=== PATIENT | male | born 1995 | race Caucasian/White ===

== ENCOUNTER 2022-08-30 13:49 | Observation (INO) | payer MEDICAID, SELFPAY ==
[2022-08-30 13:50] VITALS: BP 156/106; PULSE 88; RESP 18; TEMP 36.3; O2SAT 100; BMI 40.6
[2022-08-30 14:16] LABS: Absolute Lymphocyte Count 3.37 X10^3/uL (0.83-4.51); Absolute Neutrophil Count 8.9 X10^3/uL (2.0-7.7); Basophil# 0.04 X10^3/uL; Basophil% 0.3 % (0-1); Eosinophil# 0.04 X10^3/uL; Eosinophils% 0.3 % (0-5); Hematocrit 48.9 % (40-54); Hemoglobin 16.2 g/dL (13.0-16.5); Lymphocyte # 3.37 X10^3/ul (0.83-4.51); Lymphocyte % 25.4 % (19-41); Mean Corp Hgb Conc 33.1 g/dL (32-36); Mean Corpuscular Hgb 29.6 pg (27.0-32.0); Mean Corpuscular Volume 89.2 fL (80-94); Mean Platelet Vol. 9.3 fl (6.2-12.0); Monocyte# 0.83 X10^3/uL; Monocyte% 6.3 % (0-10); NRBC Flagged by Analyzer 0 % (0-5); Neutrophil # 8.92 X10^3/uL (2.7-7.7); Neutrophil % 67.2 % (47-70); Platelet Count 336 K/mm3 (150-450); RBC Distribution Width CV 11.8 % (11.6-14.6); RBC Distribution Width SD 37.9 fl (35.1-43.9); Red Blood Count 5.48 M/mm3 (4.6-6.2); White Blood Count 13.3 K/mm3 (4.4-11.0)
[2022-08-30 14:29] LABS: Anion Gap 7 (5-15); BUN 15 mg/dL (7-18); BUN/Creat Ratio 11.5 RATIO (10-20); Chloride 105 mmol/L (98-107); Creatinine, Serum 1.31 mg/dL (0.70-1.30); EST Glomerular Filtration Rate 69 mL/min (>60); Est Glom Filt Rate - Afr Amer 83 mL/min (>60); Estimated Creatinine Clearance 92.15 ml/min; Glucose 108 mg/dL (74-106); Potassium 4.1 mmol/L (3.5-5.1); Sodium Level 141 mmol/L (136-145)
--- NOTE | 2022-08-30 15:08 | CT_ITS ---
STUDY: CT ABDOMEN AND PELVIS WITHOUT CONTRAST REASON FOR EXAM: Male, 26 years old. Left flank pain RADIATION DOSAGE (If Supplied By Facility): CTDIvol = ( 24.05 ) mGy, DLP = ( 1375.76 ) mGycm TECHNIQUE: Transaxial images were obtained from the dome of the diaphragm to the symphysis pubis without oral contrast, and without intravenous contrast. Sagittal and coronal images were reconstructed. Individualized dose optimization techniques were used for this CT. COMPARISON: None. FINDINGS: The visualized lung bases are unremarkable. The visualized portions of the heart are within normal limits. Normal liver. Normal gallbladder and extrahepatic biliary system. Normal spleen. Normal pancreas. Normal bilateral adrenal glands. Normal right kidney. Mild degree of left hydronephrosis and proximal left hydroureter due to a 4 mm calculus in the midportion of the left ureter. There is a small hiatal hernia. Normal small intestine. Normal colon. The appendix is visualized and appears normal. Normal abdominal aorta. Normal inferior vena cava. Normal retroperitoneum. Normal urinary bladder. Normal abdominal wall. Normal osseous structures. CT/Abdomen/Pelvis without Cont IMPRESSION: 4 mm calculus in the midportion of the left ureter causing mild degree of left hydronephrosis and proximal left hydroureter. Small sliding hiatal hernia. Electronically Signed: Mikael Verduzco MD at 15:34 EST ,
--- NOTE | 2022-08-30 15:12 | EX.ED.DYSGE1 ---
HPI History of Present Illness Chief Complaint: Flank Pain Informant: patient Narrative Narrative: Patient is a 26-year-old male who denies any past medical history presenting with worsening left flank pain. He started having this left flank pain 1 week ago however it was intermittent and had been gone for the past 3 to 4 days however at 8 AM this morning he woke up with this pain. States it is in his left back and radiates around to his left lower quadrant into his left testicle. Initially thought it was a gas bubble. He tried taking Gas-X with no relief. He has associated nausea and vomiting which he attributes secondary to his pain. Denies any urinary symptoms. Denies any changes bowel habits. Denies any fever or chills. Does feel short of breath attributes that to his pain. Denies any history of kidney stones. Never had any like this before. No other complaints at this time. PFSH PFSH Medical History Acute bronchitis Non-smoker Home Medications cetirizine 10 mg tablet (Zyrtec) 10 mg PO DAILY 08/30/22 [History Last Taken Unknown] Allergy/AdvReac Type Severity Reaction Status Date / Time No Known Allergies Allergy Verified 08/30/22 13:49 Surgical History History of tonsillectomy Social History Smoking Status: Never smoker alcohol intake: current alcohol intake frequency: holidays/special occasions only ROS ROS ED Constitutional Constitutional ED: Denies chills or fever(s) Eyes Eyes: Denies change in vision ENT ENT ED: Denies rhinorrhea or sore throat Cardiovascular Cardiovascular: Denies chest pain or palpitations Respiratory/Chest Respiratory/Chest: Reports dyspnea; Denies cough Gastrointestinal Gastrointestinal: Reports abdominal pain, nausea and vomiting; Denies constipation, diarrhea or melena Genitourinary Genitourinary ED: Denies dysuria, hematuria or urinary frequency Musculoskeletal Musculoskeletal: Reports back pain; Denies arthralgias or neck pain Integumentary Denies rash Neurologic Neurologic: Denies headache(s) or weakness Psychiatric Psychiatric: Denies anxiety or depression Hematologic/Lymphatic Hematologic/Lymphatic: Denies easy bleeding EXAM Physical Exam Const Vital Signs: 08/30/22 13:50 08/30/22 15:02 08/30/22 17:04 Temperature 97.4 F L Temperature Source Temporal Pulse Rate 88 75 Respiratory Rate 18 15 Respiratory Effort Normal Respiratory Pattern Normal Blood Pressure 156/106 H 118/66 Blood Pressure Mean 122 83 Pulse Ox 100 97 Oxygen Delivery Method Room Air Room Air Positive well nourished and well developed Constitutional Narrative: Uncomfortable appearing General Appearance ED: well developed HEENT Reports moist mucous membranes Eyes PERRL and EOMs intact bilaterally Neck supple Chest Wall inspection of chest normal and palpation of chest normal Resp normal respiratory effort and clear to auscultation bilaterally Cardio regular rate, regular rhythm and no murmurs GI normal to inspection, nondistended, normoactive bowel sounds Palpation: tender LLQ; Negative for guarding Back/Spine General Back: CVA tenderness left Extremity normal to inspection Neuro oriented x3 Neuro Narrative: No focal deficits appreciated Sensorium / Orientation: alert Psych mental status grossly normal Skin no rashes or lesions noted MDM MDM MDM Narrative Medical decision making narrative: Patient is evaluated for worsening left flank pain. Physical exam and history is concerning for obstructing ureterolithiasis. Patient is given IV morphine, Zofran and IV fluids. Patient does have a mild leukocytosis of 13.3 and a mild elevation of his creatinine of 1.31. Do not have a baseline to compare to. I waiting on the urinalysis as well as CT. Urinalysis largely normal does show 5 ketones. No signs of infection. There is red blood cells present. CT abdomen pelvis shows 4 mm calculus in the midportion of the left ureter causing mild degree of left hydronephrosis and proximal left hydroureter. Patient received multiple doses of IV pain medication but continues to have significant discomfort. In addition he has a small bump in his creatinine. Discussed with urology and patient will be admitted. Patient agreeable this plan of care. Patient is given a second liter of IV fluid in the emergency room. Lab Data Labs: Laboratory Results - last 24 hr 08/30/22 08/30/22 08/30/22 14:10 14:10 18:04 WBC 13.3 H RBC 5.48 Hgb 16.2 Hct 48.9 MCV 89.2 MCH 29.6 MCHC 33.1 RDW Std Deviation 37.9 RDW Coeff of Catrina 11.8 Plt Count 336 MPV 9.3 Immature Gran % (Auto) 0.500 Neut % (Auto) 67.2 Lymph % (Auto) 25.4 [place] % (Auto) 6.3 Eos % (Auto) 0.3 Baso % (Auto) 0.3 Absolute Neuts (auto) 8.9 H Absolute Lymphs (auto) 3.37 Nucleated RBC % 0 Sodium 141 Potassium 4.1 Chloride 105 Carbon Dioxide 29.0 Anion Gap 7 BUN 15 Creatinine 1.31 H Estim Creat Clear Calc 92.15 Est GFR (MDRD) Af Amer 83 Est GFR (MDRD) Non-Af 69 BUN/Creatinine Ratio 11.5 Glucose 108 H Calcium 10.0 Urine Color Yellow Urine Clarity Clear Urine pH 5.0 Ur Specific [place] 1.025 Urine Protein 30 H Urine Glucose (UA) Normal Urine Ketones 5 H Urine Occult Blood 250 H Urine Nitrite Negative Urine Bilirubin Negative Urine Urobilinogen Normal Ur Leukocyte Esterase Negative Urine RBC 10-25 SEEN Urine WBC 0-5 SEEN Ur Squamous Epith Cells 0-5 SEEN Calcium Oxalate Crystal RARE Urine Bacteria 0 SEEN Urine Mucus RARE Radiography Diagnostic Testing: Clinical Impression(s) from Imaging Studies Abdomen/Pelvis CT 08/30/22 15:08 IMPRESSION: 4 mm calculus in the midportion of the left ureter causing mild degree of left hydronephrosis and proximal left hydroureter. Small sliding hiatal hernia. Electronically Signed: Mikael Verduzco MD at 15:34 EST , Discharge Plan Dx/Rx/DC Orders Clinical Impression: Renal colic on left side, Ureterolithiasis, Elevated serum creatinine Disposition Disposition: Acute Care Hospital [facility] [place] Discharge Date/Time: 08/30/22 20:02
[2022-08-30] MEDS: 0.9% Normal Saline 1,000 ML 999 ML IV ×2 (15:33→19:08)
[2022-08-30] MEDS: Ondansetron 4 MG/2 ML Vial IV (15:34)
[2022-08-30] MEDS: morphine 8 MG/ML Syringe IV (15:35)
[2022-08-30] MEDS: HYDROmorphone 1 MG/ML Syringe IV ×2 (16:05→17:01)
[2022-08-30 17:04] VITALS: BP 118/66; PULSE 75; RESP 15; O2SAT 97
[2022-08-30 18:12] LABS: Bacteria 0 SEEN /hpf (None Seen)
[2022-08-30 18:20] LABS: Color, Urine Yellow (Yellow); Glucose, Dipstick Normal (Normal); Ketone-Dipstick 5 mg/dl (Negative); Leukocyte Esterase-Dipstick Negative /ul (Negative); Nitrite-Dipstick Negative (Negative); Occult Blood-Urine 250 /ul (Negative); Protein-Dipstick 30 mg/dl (Negative); Specific Gravity, Urine 1.025 (1.002-1.030); Urine Bilirubin Dipstick Negative (Negative); Urine Clarity Clear (Clear); Urine Urobilinogen Normal (Normal)
[2022-08-30 18:30] LABS: Calcium Oxalate Crystals Ur RARE /hpf (<or=2+); Mucous, Urine RARE /hpf (<or=2+); Red Blood Cells-Urine 10-25 SEEN /hpf (0-5); Squamous Epithelial Cells - UA 0-5 SEEN /hpf (0-5); White Blood Cells 0-5 SEEN /hpf (0-5)
[2022-08-30] MEDS: Ketorolac 15 MG/ML Vial IV (19:09)
[2022-08-30 19:13] VITALS: BP 138/64; PULSE 65; RESP 15; TEMP 36.8; O2SAT 98
[2022-08-30 20:02] VITALS: BMI 36.6
[2022-08-30 20:14] VITALS: BP 148/78; PULSE 102; RESP 18; TEMP 36.7; O2SAT 98
[2022-08-30] MEDS: 0.9% Normal Saline 1,000 ML 75 ML IV (21:13)
[2022-08-30] MEDS: 0.9% Saline Lock 10 ML Syringe IV (21:13)
[2022-08-30] MEDS: Morphine 2 MG/ML Syringe IV (21:22)
[2022-08-31 02:30] VITALS: BP 126/81; PULSE 84; RESP 18; TEMP 36.8; O2SAT 97
[2022-08-31] MEDS: Morphine 2 MG/ML Syringe IV ×2 (03:19→08:19)
[2022-08-31] MEDS: Ketorolac 15 MG/ML Vial IV ×3 (06:23→11:58)
--- NOTE | 2022-08-31 07:42 | HP.PCM_ITS ---
HPI - General General Date of Admission: 08/30/22 HPI Narrative BEATRIZ ALCARAZ, is a 26 M who presents With a stone in the mid left ureter about 4 mm in size severe intractable pain patient was admitted for pain control. We will see if he can pass a stone that if he does not pass a stone plan for surgery tomorrow with shockwave lithotripsy. PFSH Medical History Acute bronchitis Non-smoker Home Medications cetirizine 10 mg tablet (Zyrtec) 10 mg PO DAILY 08/30/22 [History Last Taken Unknown] Allergy/AdvReac Type Severity Reaction Status Date / Time No Known Allergies Allergy Verified 08/30/22 13:49 Surgical History History of tonsillectomy Social History Smoking Status: Never smoker alcohol intake: current alcohol intake frequency: holidays/special occasions only Vital Signs Vital Signs Vital Signs: 08/30/22 13:50 08/30/22 15:02 08/30/22 17:04 Temperature 97.4 F L Temperature Source Temporal Pulse Rate 88 75 Respiratory Rate 18 15 Respiratory Effort Normal Respiratory Pattern Normal Blood Pressure 156/106 H 118/66 Blood Pressure Mean 122 83 Blood Pressure Source Blood Pressure Position Blood Pressure Location Pulse Ox 100 97 Oxygen Delivery Method Room Air Room Air Oxygen Flow Rate (L/min) 08/30/22 19:13 08/30/22 19:17 08/30/22 20:14 Temperature 98.2 F 98.1 F Temperature Source Temporal Oral Pulse Rate 65 102 H Respiratory Rate 15 18 Respiratory Effort Respiratory Pattern Blood Pressure 138/64 H 148/78 H Blood Pressure Mean 88 101 Blood Pressure Source Monitor Blood Pressure Position Sitting Blood Pressure Location Right Arm Pulse Ox 98 98 Oxygen Delivery Method Nasal Cannula Room Air Nasal Cannula Oxygen Flow Rate (L/min) 2 1 08/31/22 02:30 Temperature 98.3 F Temperature Source Oral Pulse Rate 84 Respiratory Rate 18 Respiratory Effort Respiratory Pattern Blood Pressure 126/81 H Blood Pressure Mean 96 Blood Pressure Source Monitor Blood Pressure Position Semi-Fowlers Blood Pressure Location Right Arm Pulse Ox 97 Oxygen Delivery Method Room Air Oxygen Flow Rate (L/min) Weight Weight: 122.6 kg Body Mass Index (BMI) 36.6 Results Lab / Micro Data Result Diagrams: 08/30/22 14:10 08/30/22 14:10 Labs: Laboratory Results - last 24 hr 08/30/22 14:10: WBC 13.3 H, RBC 5.48, Hgb 16.2, Hct 48.9, MCV 89.2, MCH 29.6, MCHC 33.1, RDW Std Deviation 37.9, RDW Coeff of Catrina 11.8, Plt Count 336, MPV 9.3, Immature Gran % (Auto) 0.500, Neut % (Auto) 67.2, Lymph % (Auto) 25.4, [place] % (Auto) 6.3, Eos % (Auto) 0.3, Baso % (Auto) 0.3, Absolute Neuts (auto) 8.9 H, Absolute Lymphs (auto) 3.37, Nucleated RBC % 0 08/30/22 14:10: Sodium 141, Potassium 4.1, Chloride 105, Carbon Dioxide 29.0, Anion Gap 7, BUN 15, Creatinine 1.31 H, Estim Creat Clear Calc 92.15, Est GFR (MDRD) Af Amer 83, Est GFR (MDRD) Non-Af 69, BUN/Creatinine Ratio 11.5, Glucose 108 H, Calcium 10.0 08/30/22 18:04: Urine Color Yellow, Urine Clarity Clear, Urine pH 5.0, Ur Specific [place] 1.025, Urine Protein 30 H, Urine Glucose (UA) Normal, Urine Ketones 5 H, Urine Occult Blood 250 H, Urine Nitrite Negative, Urine Bilirubin Negative, Urine Urobilinogen Normal, Ur Leukocyte Esterase Negative, Urine RBC 10-25 SEEN, Urine WBC 0-5 SEEN, Ur Squamous Epith Cells 0-5 SEEN, Calcium Oxalate Crystal RARE, Urine Bacteria 0 SEEN, Urine Mucus RARE Radiology Impression Abdomen/Pelvis CT 08/30/22 15:08 IMPRESSION: 4 mm calculus in the midportion of the left ureter causing mild degree of left hydronephrosis and proximal left hydroureter. Small sliding hiatal hernia. Electronically Signed: Mikael Verduzco MD at 15:34 EST , Assessment & Plan Assessment/Plan (1) Ureterolithiasis: PLAN: Admitted for pain control, n.p.o. at midnight, plan for shockwave litho tripsy tomorrow if fails to pass a stone.
[2022-08-31] MEDS: 0.9% Normal Saline 1,000 ML 75 ML IV (08:19)
[2022-08-31] MEDS: 0.9% Saline Lock 10 ML Syringe IV ×3 (08:19→11:58)
[2022-08-31 08:23] VITALS: BP 113/71; PULSE 70; RESP 14; TEMP 36.8; O2SAT 93
[2022-08-31 15:00] VITALS: BP 126/74; PULSE 65; RESP 14; TEMP 36.8; O2SAT 99
--- NOTE | 2022-08-31 15:20 | RAD_ITS ---
INDICATION: stone EXAMINATION/TECHNIQUE: X-RAY - XR Abdomen 1 View COMPARISON: None FINDINGS: BOWEL GAS PATTERN: Non-obstructive. No bowel or stomach distention. FREE AIR: Not assessed on a single supine view. ORGANOMEGALY: Not seen. CALCIFICATIONS: No abnormal calcifications observed. LOWER CHEST: No acute pathology. BONES AND SOFT TISSUES: No acute pathology. RAD/Abdomen Single View IMPRESSION: No abnormal calcifications seen. Electronically Signed: Samuel Salinas MD at 17:21 EST ,
== END 2022-08-31 18:26 | disposition home or self-care (01) ==
LOC: ED 16:45 → MS3 19:05
PROVIDERS: Admitting Provider Urology; Emergency Provider Emergency Medicine; Visit Provider Urology
DX: N13.2 Hydronephrosis with renal and ureteral calculous obstruction (principal); R79.89 Other specified abnormal findings of blood chemistry
CPT/HCPCS: 74018; 74176; 80048; 81001; 85025; 96361; 96374; 96375; 96376; 97802; 99218; 99221; 99284; J7030; A4216; G0378; J2405

== ENCOUNTER 2022-09-01 02:57 | Observation (INO) | payer MEDICAID, SELFPAY ==
[2022-09-01] VITALS (14 sets, daily range): BP systolic 115–142; BP diastolic 55–82; PULSE 66–87; RESP 16–22; TEMP 35.8–37.1; O2SAT 89–100; BMI 41.7; BMI 40.6
--- NOTE | 2022-09-01 03:05 | EX.ED.DYSGE1 ---
HPI History of Present Illness Chief Complaint: Flank Pain Narrative Narrative: 26-year-old male here for left-sided flank pain. Patient states that started approximately 10 PM has been constant severe radiating to the groin without alleviating factors. States it reminds him of his kidney stone he was diagnosed with yesterday. States while here yesterday he passed a kidney stone and had an x-ray done afterwards which showed no evidence of residual nephrolithiasis. Denies any allergies, chest pain, fever, vomiting, diarrhea or changes in bladder habits. PFSH PFSH Medical History Acute bronchitis Non-smoker Medical History no medical history no medical history (History of nephrolithiasis) Home Medications cetirizine 10 mg tablet (Zyrtec) 10 mg PO DAILY 08/30/22 [History Last Taken Unknown] Allergy/AdvReac Type Severity Reaction Status Date / Time No Known Allergies Allergy Verified 08/30/22 13:49 Surgical History History of tonsillectomy Social History Smoking Status: Never smoker alcohol intake: current alcohol intake frequency: holidays/special occasions only ROS ROS ED ROS Narrative Constitutional: Denies fever HEENT: Denies sore throat Neck: Denies neck pain Cardiovascular: Denies chest pain, syncope Respiratory: Denies shortness of breath GI: Denies nausea vomiting or abdominal pain : Left flank pain Musculoskeletal: Denies muscle or joint pain Neurologic: Denies numbness weakness or loss of sensation Skin denies rash EXAM Physical Exam Narrative Exam Narrative: Nursing triage notes reviewed, Vital signs reviewed Constitutional: please see mdm HENT: MMM Eyes: Pupils equal round and reactive to light, Extraocular muscles intact Neck: No stridor, no JVD, full neck ROM Lungs: Clear to auscultation, No wheezing or rales. No increased work of breathing, no conversational dyspnea, no accessory muscle use, no nasal flaring. No respiratory distress noted Heart: Regular rate and rhythm, No murmurs, No rubs and No gallops, 2+ distal pulses (radial, femoral, posterior tibial) in all extremities Abdomen: Soft, there is no tenderness, rigidity, rebound or guarding, no obvious peritoneal signs, no palpable pulsatile abdominal masses, no auscultated abdominal bruit : Left CVAT Extremities: No edema Neuro: No focal neurological deficits, cranial nerves II through XII intact, 5/5 strength in all extremities. Intact sensation to light touch in all extremities, 2+ reflexes bilateral patella dens. Normal gait. No ataxia. Skin: No rash or lesions noted Const Vital Signs: 09/01/22 02:58 Temperature 96.5 F L Temperature Source Temporal Pulse Rate 75 Respiratory Rate 22 H Blood Pressure 122/80 H Blood Pressure Mean 94 Pulse Ox 99 Oxygen Delivery Method Room Air MDM MDM MDM Narrative Medical decision making narrative: 26-year-old male here for left flank pain in the setting of recent kidney stone. Patient was hemodynamically stable, afebrile, nontoxic-appearing. Is tearful and appeared in pain. Gave morphine, fluids made pt n.p.o. Pain to CT scan to rule out residual nephrolithiasis, hydronephrosis obtain a urine sample to rule out UTI. Also obtain additional labs to rule out pancreatitis, hepatobiliary pathology, systemic inflammation, severe acute kidney injury or electrolyte abnormalities. Labs images were remarkable for left nephrolithiasis, hydronephrosis. Gave ceftriaxone for antimicrobial prophylaxis given the patient's elevated white blood cell count. Discussed the case with urology Dr. Wilson who recommended inpatient admission. Lab Data Attestation: I reviewed the patient's lab results. Lab results narrative: CBC with uptrending leukocytosis, no anemia, no thrombocytopenia BMP with no significant electrolyte abnormalities, anion gap or acute kidney injury LFTs without evidence of significant hepatobiliary pathology Lipase unremarkable for evidence of pancreatitis Labs: Laboratory Results - last 24 hr 09/01/22 09/01/22 03:25 03:25 WBC 14.7 H RBC 4.85 Hgb 14.2 Hct 42.2 MCV 87.0 MCH 29.3 MCHC 33.6 RDW Std Deviation 37.2 RDW Coeff of Catrina 11.7 Plt Count 270 MPV 9.2 Immature Gran % (Auto) 0.400 Neut % (Auto) 77.0 H Lymph % (Auto) 15.0 L [place] % (Auto) 7.1 Eos % (Auto) 0.4 Baso % (Auto) 0.1 Absolute Neuts (auto) 11.3 H Absolute Lymphs (auto) 2.21 Nucleated RBC % 0 Sodium 140 Potassium 3.9 Chloride 107 Carbon Dioxide 23.0 Anion Gap 10 BUN 15 Creatinine 1.16 Estim Creat Clear Calc 104.06 Est GFR (MDRD) Af Amer 96 Est GFR (MDRD) Non-Af 79 BUN/Creatinine Ratio 12.9 Glucose 119 H Calcium 9.1 Total Bilirubin 0.70 AST 15 ALT 40 Alkaline Phosphatase 74 Total Protein 6.9 Albumin 3.6 Globulin 3.3 Albumin/Globulin Ratio 1.1 Lipase 97 Radiography Diagnostic Testing: Clinical Impression(s) from Imaging Studies Abdomen/Pelvis CT 09/01/22 03:07 IMPRESSION: 5 mm left ureteral calculus with associated mild upstream dilatation of the left collecting system. Left renal enlargement and perinephric stranding are likely postobstructive findings. Electronically Signed: Leander Lux MD at 3:59 EST , Treatment and Re-Evaluation Narrative: Patient was admitted to the floor in stable condition. Discharge Plan Disposition Disposition: Acute Care Hospital [facility] Discharge Date/Time: 09/01/22 06:23
--- NOTE | 2022-09-01 03:07 | CT_ITS ---
EXAM: CT ABDOMEN AND PELVIS WITHOUT INTRAVENOUS CONTRAST CLINICAL INDICATION: Left-sided flank pain rule out nephrolithiasis TECHNIQUE: Helically acquired images were obtained of the abdomen and pelvis without intravenous contrast. CTDIvol = ( 23.57 ) mGy, DLP = ( 1331.10 ) mGycm This CT exam was performed using one or more of the following dose reduction techniques: automated exposure control, adjustment of the mA and/or kV according to patient size, and/or use of iterative reconstruction technique. This report was created using [employer] report [employer] technology. COMPARISON: None. FINDINGS: LOWER THORAX: Unremarkable. Lung bases are clear. No cardiomegaly. No significant pericardial effusion. ABDOMEN: LIVER: Unremarkable. Homogeneous. GALLBLADDER AND BILE DUCTS: Unremarkable. No calcified gallstones. No gallbladder distention or wall edema. No intra- or extrahepatic biliary ductal dilation. PANCREAS: Unremarkable. No focal cystic mass. SPLEEN: Unremarkable. Normal size without focal cystic or solid mass. ADRENALS: Unremarkable. No nodules. KIDNEYS AND URETERS: 5 mm left ureteral calculus with associated mild upstream dilatation of the left collecting system. Left renal enlargement and perinephric stranding are likely postobstructive findings. Normal renal size and position. STOMACH AND BOWEL: Distal colonic diverticulosis but no acute diverticulitis. No colitis. No bowel obstruction. PELVIS: APPENDIX: No evidence of acute appendicitis. BLADDER: Unremarkable. REPRODUCTIVE: Unremarkable as visualized. No mass. ABDOMEN and PELVIS: INTRAPERITONEAL SPACE: Unremarkable. No ascites or other fluid collection. No free air. BONES/JOINTS: Unremarkable. No suspicious lytic or blastic abnormality. SOFT TISSUES: Unremarkable. No discrete abdominal or pelvic wall hernia. VASCULATURE: Unremarkable. Abdominal aorta is non-dilated. LYMPH NODES: Unremarkable. No enlarged lymph nodes. CT/Abdomen/Pelvis without Cont IMPRESSION: 5 mm left ureteral calculus with associated mild upstream dilatation of the left collecting system. Left renal enlargement and perinephric stranding are likely postobstructive findings. Electronically Signed: Leander Lux MD at 3:59 EST ,
[2022-09-01 03:30] LABS: Absolute Lymphocyte Count 2.21 X10^3/uL (0.83-4.51); Absolute Neutrophil Count 11.3 X10^3/uL (2.0-7.7); Basophil# 0.02 X10^3/uL; Basophil% 0.1 % (0-1); Eosinophil# 0.06 X10^3/uL; Eosinophils% 0.4 % (0-5); Hematocrit 42.2 % (40-54); Hemoglobin 14.2 g/dL (13.0-16.5); Lymphocyte # 2.21 X10^3/ul (0.83-4.51); Mean Corp Hgb Conc 33.6 g/dL (32-36); Mean Corpuscular Hgb 29.3 pg (27.0-32.0); Mean Platelet Vol. 9.2 fl (6.2-12.0); Monocyte# 1.05 X10^3/uL; Monocyte% 7.1 % (0-10); NRBC Flagged by Analyzer 0 % (0-5); Neutrophil # 11.34 X10^3/uL (2.7-7.7); Platelet Count 270 K/mm3 (150-450); RBC Distribution Width CV 11.7 % (11.6-14.6); RBC Distribution Width SD 37.2 fl (35.1-43.9); Red Blood Count 4.85 M/mm3 (4.6-6.2); White Blood Count 14.7 K/mm3 (4.4-11.0)
[2022-09-01] MEDS: Morphine 4 MG/ML Syringe IV (03:52)
[2022-09-01] MEDS: Ketorolac 15 MG/ML Vial IV (03:52)
[2022-09-01] MEDS: 0.9% Normal Saline 1,000 ML 1000 ML IV (03:52)
[2022-09-01] MEDS: Ondansetron 4 MG/2 ML Vial IV ×2 (03:52→09:56)
[2022-09-01 03:55] LABS: ALB/GLOB Ratio 1.1 RATIO (0.9-2.4); AST(SGOT) 15 U/L (15-37); Alanine Aminotransfer ALT/SGPT 40 U/L (16-61); Albumin, Serum 3.6 g/dL (3.2-5.0); Alkaline Phosphatase 74 U/L (45-117); Anion Gap 10 (5-15); BUN 15 mg/dL (7-18); BUN/Creat Ratio 12.9 RATIO (10-20); Calcium,Total 9.1 mg/dL (8.5-10.1); Chloride 107 mmol/L (98-107); Creatinine, Serum 1.16 mg/dL (0.70-1.30); EST Glomerular Filtration Rate 79 mL/min (>60); Est Glom Filt Rate - Afr Amer 96 mL/min (>60); Estimated Creatinine Clearance 104.06 ml/min; Globulin 3.3 g/dL (2.2-4.2); Glucose 119 mg/dL (74-106); Lipase 97 U/L (73-393); Potassium 3.9 mmol/L (3.5-5.1); Protein, Total 6.9 g/dL (6.4-8.2); Sodium Level 140 mmol/L (136-145)
[2022-09-01] MEDS: HYDROmorphone 1 MG/ML Syringe IV ×3 (05:24→21:00)
[2022-09-01] MEDS: Ceftriaxone 1 GM/50 ML BAG IV (06:14)
[2022-09-01 06:29] LABS: Mucous, Urine 0 SEEN /hpf (<or=2+); Squamous Epithelial Cells - UA 0 SEEN /hpf (0-5)
[2022-09-01 06:30] LABS: Color, Urine Yellow (Yellow); Glucose, Dipstick Normal (Normal); Ketone-Dipstick 15 mg/dl (Negative); Leukocyte Esterase-Dipstick 25 /ul (Negative); Nitrite-Dipstick Negative (Negative); Occult Blood-Urine 250 /ul (Negative); Protein-Dipstick Negative (Negative); Specific Gravity, Urine 1.015 (1.002-1.030); Urine Bilirubin Dipstick Negative (Negative); Urine Clarity Clear (Clear); Urine Urobilinogen Normal (Normal)
[2022-09-01 06:37] LABS: Bacteria RARE /hpf (None Seen); Red Blood Cells-Urine 5-10 SEEN /hpf (0-5); White Blood Cells 0-5 SEEN /hpf (0-5)
--- NOTE | 2022-09-01 07:28 | HP.PCM_ITS ---
HPI - General General Date of Admission: 09/01/22 Chief Complaint: kidney stone HPI Narrative BEATRIZ ALCARAZ, is a 26 M who presents to ER with a 5mm stone in proximal ureter, he was discharge yesturday since it was reported the stone passed and KUB no stone seen but he presented later in the evening with severe pain and ct scan confirms stone. plan to take to surgery for ESWL and stent today. PFSH Medical History Acute bronchitis Non-smoker Medical History no medical history Home Medications cetirizine 10 mg tablet (Zyrtec) 10 mg PO DAILY 08/30/22 [History Last Taken Unknown] Allergy/AdvReac Type Severity Reaction Status Date / Time No Known Allergies Allergy Verified 08/30/22 13:49 Surgical History History of tonsillectomy Social History Smoking Status: Never smoker alcohol intake: current alcohol intake frequency: holidays/special occasions only ROS Constitutional Constitutional: Denies chills, fever(s) or malaise Eyes Eyes: Denies blurry vision or change in vision ENT HEENT: Reports none Cardiovascular Cardiovascular: Denies chest pain or palpitations Respiratory/Chest Respiratory/Chest: Denies cough or shortness of breath with exertion Gastrointestinal Gastrointestinal: Denies abdominal pain, constipation or diarrhea Musculoskeletal Musculoskeletal: Denies back pain, joint stiffness or joint swelling Integumentary Integumentary: Denies dry skin, jaundice, lesions or rash Neurologic Neurologic: Denies confusion, syncope or weakness Psychiatric Psychiatric: Reports none; Denies anxiety or depression Endocrine Endocrinology: Denies excessive sweating, fatigue or flushing Hematologic/Lymphatic Hematologic/Lymphatic: Denies anemia, easy bleeding or easy bruising Vital Signs Vital Signs Vital Signs: 09/01/22 02:58 09/01/22 06:16 09/01/22 06:22 Temperature 96.5 F L 97.9 F 98.7 F Temperature Source Temporal Temporal Temporal Pulse Rate 75 85 78 Respiratory Rate 22 H 18 16 Blood Pressure 122/80 H 136/55 H 132/77 H Blood Pressure Mean 94 82 95 Blood Pressure Source Monitor Blood Pressure Position Supine Blood Pressure Location Right Arm Pulse Ox 99 95 94 Oxygen Delivery Method Room Air Room Air Room Air Weight Weight: 135.8 kg Body Mass Index (BMI) 40.6 Physical Exam Const alert and oriented x3 General Appearance: cooperative HEENT normocephalic, head/scalp atraumatic, EAC's normal and TM's normal bilaterally Eyes PERRL and EOMs intact bilaterally Pupil: sluggish Neck no lymphadenopathy, supple and no JVD General: trachea midline Lymph Lymphatic: no lymphadenopathy noted, lymphedema and lymphadenopathy Resp normal respiratory effort, normal air movement and clear to auscultation bilaterally Cardio regular rate, regular rhythm and peripheral pulses 2+ throughout GI soft to palpation, non-tender and non-distended Extremity normal capillary refill and no clubbing, cyanosis or edema General Extremity: no tenderness to palpation of joints or extremities Skin no rashes or lesions noted General Skin Exam: turgor normal Lesions: no lesions Rashes: no rashes Neuro CN's II-XII intact bilaterally Speech: speech normal Motor Exam: strength 5/5 throughout; Negative for general weakness Psych thought process normal, cooperative and affect normal Appearance: appropriate Results Lab / Micro Data Result Diagrams: 09/01/22 03:25 09/01/22 03:25 Labs: Laboratory Results - last 24 hr 09/01/22 03:25: WBC 14.7 H, RBC 4.85, Hgb 14.2, Hct 42.2, MCV 87.0, MCH 29.3, MCHC 33.6, RDW Std Deviation 37.2, RDW Coeff of Catrina 11.7, Plt Count 270, MPV 9.2, Immature Gran % (Auto) 0.400, Neut % (Auto) 77.0 H, Lymph % (Auto) 15.0 L, [place] % (Auto) 7.1, Eos % (Auto) 0.4, Baso % (Auto) 0.1, Absolute Neuts (auto) 11.3 H, Absolute Lymphs (auto) 2.21, Nucleated RBC % 0 09/01/22 03:25: Sodium 140, Potassium 3.9, Chloride 107, Carbon Dioxide 23.0, Anion Gap 10, BUN 15, Creatinine 1.16, Estim Creat Clear Calc 104.06, Est GFR (MDRD) Af Amer 96, Est GFR (MDRD) Non-Af 79, BUN/Creatinine Ratio 12.9, Glucose 119 H, Calcium 9.1, Total Bilirubin 0.70, AST 15, ALT 40, Alkaline Phosphatase 74, Total Protein 6.9, Albumin 3.6, Globulin 3.3, Albumin/Globulin Ratio 1.1, Lipase 97 09/01/22 06:24: Urine Color Yellow, Urine Clarity Clear, Urine pH 5.0, Ur Specific [place] 1.015, Urine Protein Negative, Urine Glucose (UA) Normal, Urine Ketones 15 H, Urine Occult Blood 250 H, Urine Nitrite Negative, Urine Bilirubin Negative, Urine Urobilinogen Normal, Ur Leukocyte Esterase 25 H, Urine RBC 5-10 SEEN, Urine WBC 0-5 SEEN, Ur Squamous Epith Cells 0 SEEN, Urine Bacteria RARE, Urine Mucus 0 SEEN Radiology Impression Abdomen/Pelvis CT 09/01/22 03:07 IMPRESSION: 5 mm left ureteral calculus with associated mild upstream dilatation of the left collecting system. Left renal enlargement and perinephric stranding are likely postobstructive findings. Electronically Signed: Leander Lux MD at 3:59 EST , Assessment & Plan Assessment/Plan (1) Renal colic on left side: PLAN: plan for Surgery ESWl and stent today.l (2) Ureterolithiasis:
[2022-09-01] MEDS: Morphine 2 MG/ML Syringe IV ×2 (08:03→10:01)
[2022-09-01] MEDS: 0.9% Normal Saline 1,000 ML 75 ML IV (08:05)
--- NOTE | 2022-09-01 11:15 | NURSING ---
Paged Dr. Wilson for pain meds. Morphine not effective for pain. Patient in tears over pain.
--- NOTE | 2022-09-01 11:44 | CASEMGMT ---
Social Work Consult: Self Pay Referral source: Self referral due to above This social media sr strategy manager met with patient in room. Introduced self and social media sr strategy manager role. Patient agreeable to speak with this social media sr strategy manager. Brief interaction due to patient current patient level, nursing in room prior to this social media sr strategy manager speaking with patient and is speaking with doctor about patient pain. Patient confirms to not have any insurance. 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 Patient interested in this social media sr strategy manager providing patient with community resources. This social media sr strategy manager provided patient with prescription assistance programs, [facility] (patient has no PCP), [facility] [email or web address] card, Medicaid application, income guidelines for medicaid. This social media sr strategy manager also educating patient on HCAP form through [facility]. Patient denies any further questions. no further needs identified or requested. Ursula AGUILAR, HORACE
[2022-09-01] MEDS: Lactated Ringers 1,000 ML 15 ML IV (14:10)
--- NOTE | 2022-09-01 15:08 | PCM.OPRPT ---
Report of Operation Date of Procedure: 09/01/22 Pre-Operative Diagnosis: left ureteral stone Post-Operative Diagnosis: same Surgery/Procedure Performed:: cystoscopy and left stent placement and left ESWL Description of Surgical Findings:: Patient presents to the hospital for treatment of a kidney stone with shockwave lithotripsy. In the preoperative area and x-ray was done to confirm the location of the stone. The x-ray was reviewed and the stone location was reviewed. In the preoperative setting I spoke with the patient regarding the treatment of the stone how the treatment would be conducted and the expectations after surgery. The patient understands there is a risk of bleeding and infection. Also discussed the very rare risk of hematoma or damage to the kidney. We also discussed the risk that the shockwave machine will fail to break the stone adequately and that the patient may need other surgical procedures. We also discussed the possibility that the patient may need a stent after the procedure. After reviewing the procedure with the patient, the patient is signed the consent form all the patient's questions were addressed and was taken back to the operating room for treatment of a kidney stone. Patient was taken back to the operating room after induction of general anesthesia, the patient was placed in dorsolithotomy position. The urethra and genitals were prepped and draped in usual sterile fashion. Using a 21 [place] rigid cystourethroscope the entire length of the urethra was normal then went into the bladder. Identified the trigone the left and right ureteral orifice. I then cannulated the Left orifice and advanced a wire up into the kidney. I then backloaded a 5 [place] open ended catheter over the wire and injected contrast to delineate the anatomy. After the retrograde was performed I then used fluoroscopic images and guidance to advanced a wire up into the kidney and over the 0.038 glidewire I advanced a 6 [place] by 26 cm double pigtail stent. I then pulled the 0.038 Glidewire off and the stent coiled in the kidney bladder good position. The bladder was then drained. We confirmed the position of the stent by fluoroscopy. Patient was taken back to the operating room, patient was identified by the nursing staff, we identified the side of the treatment and the patient side of treatment had been marked by my initials. The patient underwent general anesthetic and was placed supine on the lithotripter table. We then used fluoroscopy to identify the stone on the left side next to the stent, the stone was very hard to see but using trigulation it appeared to be the stone next to the stent. We then positioned the patient under the lithotripter and we used triangulation technique to identify the location of the stone and then we made sure that the stone was engaged in the F2 focal point of F2 Donier lithoprior machine. Once the patient was positioned appropriately and the stone was identified and placed in the F2 focal point of the lithotripter machine we then proceeded with shockwave lithotripsy. In the beginning the shockwave was delivered at a rate of 90 shocks per minute, we monitor the EKG for any ectopy. The power was slowly increased to 5 kV and subsequently at the 7 kV. We then proceeded with the treatment we move the therapy had around during the treatment to make sure the stone stayed in the F2 focal point during the entire treatment and after 3000 shockwaves were delivered to the stone under fluoroscopic guidance the treatment was completed. The patient was given instructions to call the office to make an a follow-up appointment with an xray to evaluate the success of the treatment, pateint understands that its possible the stones may need another procedure.At this point the patient's anesthetic was reversed patient was extubated and taken back to the PACU in stable condition. Surgeon: Gabo Wilson Type of Anesthesia: General Drains: stent left side Admit VTE Documentation VTE Present on Admission: No VTE Mechan Device Prophylaxis: SCD's VTE Pharm Prophylaxis ordered?: No
--- NOTE | 2022-09-01 16:17 | DCINST_ITS ---
Discharge Instructions Diet Discharge Diet: No restrictions, Light diet - advance as tolerated and Soft diet Activity Discharge Activity: Return to Normal Activity Follow Up Care Please Follow Up With: Gabo Wilson MD When: call for results. Test Results: Test results from this visit will be discussed in further detail at your follow- up appointment, if applicable. Discharge Plan Admission Admit Date/Time: 09/01/22 07:51 Primary Reason for Your Visit: kidney stone Attending Provider: Gabo Wilson Primary Care Provider: Care Physician,No Primary Discharge Orders/Prescriptions Prescriptions: New oxycodone-acetaminophen 5-325 mg tablet 1 tab PO Q6H PRN (Reason: pain) 7 Days Qty: 15 0RF ciprofloxacin HCl [Cipro] 500 mg tablet 500 mg PO BID Qty: 10 0RF No Action cetirizine [Zyrtec] 10 mg Tablet 10 mg PO DAILY Referrals / Follow Up: Gabo Wilson MD [Med Staff - Active Staff] - Care Physician,No Primary [Primary Care Provider] - Disposition Discharge Orders: Discharge Patient (Routine); Ordered 09/01/22 Ordered By: Dr. Gabo Wilson
[2022-09-01] MEDS: 0.9% Saline Lock 10 ML Syringe IV (20:59)
== END 2022-09-01 21:10 | disposition home or self-care (01) ==
LOC: ED 03:28 → MS3 07:23
PROVIDERS: Admitting Provider Urology; Emergency Provider Emergency Medicine; Visit Provider Urology
PROC: (CPT 50590; principal; 2022-09-01 14:50)
DX: N13.2 Hydronephrosis with renal and ureteral calculous obstruction (principal)
CPT/HCPCS: 00873; 74018; 74176; 80048; 80053; 81001; 83690; 85025; 96361; 96365; 96374; 96375; 96376; 97802; 99218; 99221; 99283; 99284; J7030; J7120; A4216; C1769; C2617; G0378; J2405

== ENCOUNTER 2022-09-05 16:11 | Emergency (ER) | payer MEDICAID, SELFPAY ==
[2022-09-05 16:12] VITALS: BP 126/84; PULSE 107; RESP 16; TEMP 35.6; O2SAT 97; BMI 39.9
--- NOTE | 2022-09-05 17:51 | EDS_ITS ---
HPI <JOYCE Flwoers - Last Filed: 09/05/22 21:54> History of Present Illness Chief Complaint: Flank Pain Narrative Narrative: Presents today with left-sided flank pain that radiates into his left groin and left lower abdomen. This pain began earlier this afternoon. Patient was here 08/30/22 for 4 mm kidney stone and was ultimately admitted for pain control. He was discharged 08/31 because the stone reportedly passed and a KUB no longer showed evidence of a stone. He then returned 09/01 for left-sided flank pain. A CT of the abdomen and pelvis was obtained and showed a 5 mm left-sided mid ureteral stone. Patient was ultimately admitted and a lithotripsy with stenting was performed. Patient states his pain did resolve after his procedures 09/01 aside from some residual soreness in the area. Patient has been taking his post-op antibiotic as prescribed. He admits to dysuria but denies fever, nausea, vomiting, diarrhea. PFSH <JOYCE Flowers - Last Filed: 09/05/22 21:54> [facility] Medical History Acute bronchitis Kidney stones Non-smoker Home Medications cetirizine 10 mg tablet (Zyrtec) 10 mg PO DAILY Check with primary doctor 08/30/22 [History Last Taken Unknown] ciprofloxacin HCl 500 mg tablet (Cipro) 500 mg PO BID #10 tabs 09/01/22 [Rx Last Taken Unknown] oxycodone-acetaminophen 5 mg-325 mg tablet 1 tab PO Q6H PRN pain 7 days #15 tabs 09/01/22 [Rx Last Taken Unknown] Allergy/AdvReac Type Severity Reaction Status Date / Time No Known Allergies Allergy Verified 09/05/22 16:12 Surgical History (Updated 09/05/22 @ 23:[address] Christine Blackwell DO) History of tonsillectomy Social History Smoking Status: Never smoker alcohol intake: current alcohol intake frequency: holidays/special occasions only ROS <JOYCE Flowers Last Filed: 09/05/22 21:54> ROS ED Constitutional Constitutional ED: Denies chills, fever(s) or sweats Eyes Eyes: Denies blurry vision or change in vision ENT ENT ED: Denies nasal congestion, rhinorrhea or sore throat Cardiovascular Cardiovascular: Denies chest pain, palpitations or racing heartbeat Respiratory/Chest Respiratory/Chest: Denies cough, dyspnea or dyspnea on exertion Gastrointestinal Gastrointestinal: Reports abdominal pain; Denies constipation, diarrhea, melena, nausea or vomiting Genitourinary Genitourinary ED: Reports dysuria; Denies hematuria or urinary frequency Musculoskeletal Musculoskeletal: Reports back pain; Denies arthralgias or myalgias Integumentary Denies abscess or rash Neurologic Neurologic: Denies headache(s), paresthesias or weakness Psychiatric Psychiatric: Denies anxiety or depression EXAM <JOYCE Flowers - Last Filed: 09/05/22 21:54> Physical Exam Const Vital Signs: 09/05/22 16:12 09/05/22 19:05 09/05/22 20:48 Temperature 96.0 F L Temperature Source Temporal Pulse Rate 107 H 82 82 Respiratory Rate 16 16 15 Blood Pressure 126/84 H 132/79 H 190/110 H Blood Pressure Mean 98 96 136 Pulse Ox 97 99 99 Oxygen Delivery Method Room Air Room Air Room Air 09/05/22 21:27 Temperature Temperature Source Pulse Rate 82 Respiratory Rate 15 Blood Pressure 180/110 H Blood Pressure Mean Pulse Ox 98 Oxygen Delivery Method Positive obese Constitutional Narrative: Patient appears to be in a lot of pain and is writhing on the bed crying and grabbing at his left flank. Nutritional Appearance: obese HEENT Reports moist mucous membranes normocephalic and atraumatic Eyes PERRL and EOMs intact bilaterally Neck no lymphadenopathy and supple Resp normal respiratory effort and clear to auscultation bilaterally Cardio regular rate, regular rhythm and no murmurs GI non-tender, non-distended and no masses Auscultation: normoactive bowel sounds Palpation: soft; Negative for guarding Bladder / Kidney Exam: CVA tenderness left Extremity normal to inspection General Extremety ED: Negative for edema General Extremity: Negative for edema Neuro oriented x3, CN's II-XII intact bilaterally, moves all extremities, no focal motor deficits and no sensory deficits noted Sensorium / Orientation: alert Motor Exam: strength 5/5 throughout Psych mental status grossly normal Skin General Skin Exam: Negative for jaundice Lesions: no lesions Rashes: no rashes <Dr. Christine Blackwell DO - Last Filed: 09/05/22 23:47> Physical Exam Const Vital Signs: 09/05/22 16:12 09/05/22 19:05 09/05/22 20:48 Temperature 96.0 F L Temperature Source Temporal Pulse Rate 107 H 82 82 Respiratory Rate 16 16 15 Blood Pressure 126/84 H 132/79 H 190/110 H Blood Pressure Mean 98 96 136 Pulse Ox 97 99 99 Oxygen Delivery Method Room Air Room Air Room Air 09/05/22 21:27 Temperature Temperature Source Pulse Rate 82 Respiratory Rate 15 Blood Pressure 180/110 H Blood Pressure Mean Pulse Ox 98 Oxygen Delivery Method MDM <JOYCE Flowers - Last Filed: 09/05/22 21:54> [facility] MDM Narrative Medical decision making narrative: Patient was given morphine, Toradol, and Dilaudid for pain control. He was given a dose of Rocephin to cover possible cystitis. I discussed patient with Dr. Wilson and he advised me that it is normal for patient to be in pain like this postop and that his urine findings were normal. Patient has a follow-up with him on afternoon. Dr. Wilson advised he keep that appointment and discharge home with pain control. Patient advised me he still has 12 of his Percocets at home and still has ciprofloxacin. I did not write him for any additional pain control due to the amount that he still has at home. Upon reexamination patient states his pain is at a 5 but tolerable and he is feeling much better. Patient and his mom are comfortable with him discharging home. I have given him return instructions and advised him to use his pain medication as prescribed. I am comfortable with patient discharging home. Lab Data Attestation: I reviewed the patient's lab results. Lab results narrative: Elevated white blood cells and neutrophils. Creatinine 1.35. UA significant for Hematuria, positive nitrites, elevated leukocyte Esterase. 0 bacteria. Labs: Laboratory Results - last 24 hr 09/05/22 09/05/22 09/05/22 18:30 18:30 19:10 WBC 16.0 H RBC 5.46 Hgb 16.0 Hct 48.3 MCV 88.5 MCH 29.3 MCHC 33.1 RDW Std Deviation 37.6 RDW Coeff of [place]rina 11.9 Plt Count 378 MPV 9.4 Immature Gran % (Auto) 0.500 Neut % (Auto) 71.0 H Lymph % (Auto) 22.1 [place] % (Auto) 5.7 Eos % (Auto) 0.5 Baso % (Auto) 0.2 Absolute Neuts (auto) 11.4 H Absolute Lymphs (auto) 3.54 Nucleated RBC % 0 Sodium 139 Potassium 4.0 Chloride 107 Carbon Dioxide 25.0 Anion Gap 7 BUN 16 Creatinine 1.35 H Estim Creat Clear Calc 89.42 Est GFR (MDRD) Af Amer 80 Est GFR (MDRD) Non-Af 66 BUN/Creatinine Ratio 11.9 Glucose 96 Calcium 9.7 Urine Color Yellow Urine Clarity Cloudy Urine pH 5.0 Ur Specific [place] 1.030 Urine Protein 100 H Urine Glucose (UA) Normal Urine Ketones 15 H Urine Occult Blood 250 H Urine Nitrite Positive H Urine Bilirubin Negative Urine Urobilinogen Normal Ur Leukocyte Esterase 100 H Urine RBC > 100 SEEN Urine WBC 0-5 SEEN Ur Squamous Epith Cells 0 SEEN Urine Bacteria 0 SEEN Urine Mucus 0 SEEN Radiography Diagnostic Testing: Clinical Impression(s) from Imaging Studies Abdomen X-Ray 09/05/22 18:40 IMPRESSION: Expected appearance of left double-J ureter stent without finding of radiopaque urinary calculus. Electronically Signed: Anthony Ruffin MD at 19:09 EST , KUB did not show urinary calculus. I agree with radiologist impressions. This has also been reviewed by attending ED physician. <Dr. Christine Blackwell, DO - Last Filed: 09/05/22 23:47> [facility] Lab Data Labs: Laboratory Results - last 24 hr 09/05/22 09/05/22 09/05/22 18:30 18:30 19:10 WBC 16.0 H RBC 5.46 Hgb 16.0 Hct 48.3 MCV 88.5 MCH 29.3 MCHC 33.1 RDW Std Deviation 37.6 RDW Coeff of [place] 11.9 Plt Count 378 MPV 9.4 Immature Gran % (Auto) 0.500 Neut % (Auto) 71.0 H Lymph % (Auto) 22.1 [place] % (Auto) 5.7 Eos % (Auto) 0.5 Baso % (Auto) 0.2 Absolute Neuts (auto) 11.4 H Absolute Lymphs (auto) 3.54 Nucleated RBC % 0 Sodium 139 Potassium 4.0 Chloride 107 Carbon Dioxide 25.0 Anion Gap 7 BUN 16 Creatinine 1.35 H Estim Creat Clear Calc 89.42 Est GFR (MDRD) Af Amer 80 Est GFR (MDRD) Non-Af 66 BUN/Creatinine Ratio 11.9 Glucose 96 Calcium 9.7 Urine Color Yellow Urine Clarity Cloudy Urine pH 5.0 Ur Specific [place] 1.030 Urine Protein 100 H Urine Glucose (UA) Normal Urine Ketones 15 H Urine Occult Blood 250 H Urine Nitrite Positive H Urine Bilirubin Negative Urine Urobilinogen Normal Ur Leukocyte Esterase 100 H Urine RBC > 100 SEEN Urine WBC 0-5 SEEN Ur Squamous Epith Cells 0 SEEN Urine Bacteria 0 SEEN Urine Mucus 0 SEEN Radiography Diagnostic Testing: Clinical Impression(s) from Imaging Studies Abdomen X-Ray 09/05/22 18:40 IMPRESSION: Expected appearance of left double-J ureter stent without finding of radiopaque urinary calculus. Electronically Signed: Anthony Ruffin MD at 19:09 EST , Treatment and Re-Evaluation Narrative: I have personally performed a face to face assessment of the patient and have reviewed the DONAVAN Note. I performed a substantive portion of the visit including all aspects of the following. My tadeo findings include: History is patient is a 26-year-old male presenting with recurrent left-sided flank pain. Patient has had 2 admissions for left-sided ureterolithiasis and subsequent stenting performed by Dr. Wilson. He has had worsening flank pain for the past 1 to 2 days. Patient is currently on Percocet and Cipro at home. Prior CTs reviewed by myself which do not show any residual stones in the kidney. KUB obtained as patient has had 2 CTs within the last week. This does show stent without any radiopaque urinary calculus. This is interpreted by myself as well as radiology. Patient is given couple doses of IV pain medication. He is also then given Toradol and IV fluids. Case discussed with Dr. Wilson as urinalysis does show positive nitrites with no bacteria, greater than 100 red blood cells and 0-5 white blood cells. He states that these are expected findings. He states that this is just a pain control issue and patient to be discharged home. Patient will follow-up on with him. Patient is given return precautions. Discharged home in improved and stable condition. He does not have an POLA. He does have a leukocytosis which is mildly uptrending from 14.7-16.0. Urine culture is sent. Discharge Plan Triage Chief Complaint: Flank Pain ED Midlevel Provider: Veronica Madsen ED Provider: Christine Blackwell Dx/Rx/DC Orders Clinical Impression: Acute flank pain, History of renal stent Instructions: Managing Post-Op Pain at Home Prescriptions: No Action cetirizine [Zyrtec] 10 mg Tablet 10 mg PO DAILY oxycodone-acetaminophen 5-325 mg tablet 1 tab PO Q6H PRN (Reason: pain) 7 Days Qty: 15 0RF ciprofloxacin HCl [Cipro] 500 mg tablet 500 mg PO BID Qty: 10 0RF Stand Alone Forms: ED Work / School Excuse Primary Care Provider: Care Physician,No Primary Referrals: Care Physician,No Primary [Primary Care Provider] - Activity Restrictions/Additional Instructions: Please follow-up with Dr. Wilson . Please return if you develop fever or symptoms worsen. Disposition Disposition: Home, Self Care Discharge Date/Time: 09/05/22 21:29
[2022-09-05] MEDS: Morphine 4 MG/ML Syringe IV ×2 (18:21→19:01)
[2022-09-05] MEDS: Ondansetron 4 MG/2 ML Vial IV (18:22)
[2022-09-05 18:36] LABS: Absolute Lymphocyte Count 3.54 X10^3/uL (0.83-4.51); Absolute Neutrophil Count 11.4 X10^3/uL (2.0-7.7); Basophil# 0.03 X10^3/uL; Basophil% 0.2 % (0-1); Eosinophil# 0.08 X10^3/uL; Eosinophils% 0.5 % (0-5); Hematocrit 48.3 % (40-54); Lymphocyte # 3.54 X10^3/ul (0.83-4.51); Lymphocyte % 22.1 % (19-41); Mean Corp Hgb Conc 33.1 g/dL (32-36); Mean Corpuscular Hgb 29.3 pg (27.0-32.0); Mean Corpuscular Volume 88.5 fL (80-94); Mean Platelet Vol. 9.4 fl (6.2-12.0); Monocyte# 0.91 X10^3/uL; Monocyte% 5.7 % (0-10); NRBC Flagged by Analyzer 0 % (0-5); Neutrophil # 11.36 X10^3/uL (2.7-7.7); Platelet Count 378 K/mm3 (150-450); RBC Distribution Width CV 11.9 % (11.6-14.6); RBC Distribution Width SD 37.6 fl (35.1-43.9); Red Blood Count 5.46 M/mm3 (4.6-6.2)
--- NOTE | 2022-09-05 18:40 | RAD_ITS ---
STUDY: X-RAY - ABDOMEN/PELVIS REASON FOR EXAM: Male, 26 years old. Flank pain, hx stones TECHNIQUE: AP supine and upright views of the abdomen and pelvis. COMPARISON: 08/31/2022; 09/01/2022 CT FINDINGS: Normal visualized lung bases. There is an unremarkable bowel gas pattern. There is no demonstrated free abdominal air. The visualized liver, spleen and kidneys are grossly normal in size and morphology. Interval placement of left ureter stent with proximal coil over the expected location of the left renal pelvis and distal coil over the expected location of the urinary bladder. No radiopaque urinary calculus. Normal visualized osseous structures. RAD/Abd Decub and/or Erect(Portabl IMPRESSION: Expected appearance of left double-J ureter stent without finding of radiopaque urinary calculus. Electronically Signed: Anthony Ruffin MD at 19:09 EST ,
[2022-09-05 18:47] LABS: Anion Gap 7 (5-15); BUN 16 mg/dL (7-18); BUN/Creat Ratio 11.9 RATIO (10-20); Calcium,Total 9.7 mg/dL (8.5-10.1); Chloride 107 mmol/L (98-107); Creatinine, Serum 1.35 mg/dL (0.70-1.30); EST Glomerular Filtration Rate 66 mL/min (>60); Est Glom Filt Rate - Afr Amer 80 mL/min (>60); Estimated Creatinine Clearance 89.42 ml/min; Glucose 96 mg/dL (74-106); Sodium Level 139 mmol/L (136-145)
[2022-09-05] MEDS: 0.9% Normal Saline 1,000 ML 999 ML IV (18:59)
[2022-09-05 19:05] VITALS: BP 132/79; PULSE 82; RESP 16; O2SAT 99
[2022-09-05 19:17] LABS: Bacteria 0 SEEN /hpf (None Seen); Mucous, Urine 0 SEEN /hpf (<or=2+); Squamous Epithelial Cells - UA 0 SEEN /hpf (0-5)
[2022-09-05 19:19] LABS: Color, Urine Yellow (Yellow); Glucose, Dipstick Normal (Normal); Ketone-Dipstick 15 mg/dl (Negative); Leukocyte Esterase-Dipstick 100 /ul (Negative); Nitrite-Dipstick Positive (Negative); Occult Blood-Urine 250 /ul (Negative); Protein-Dipstick 100 mg/dl (Negative); Urine Bilirubin Dipstick Negative (Negative); Urine Clarity Cloudy (Clear); Urine Urobilinogen Normal (Normal)
[2022-09-05 19:27] LABS: Red Blood Cells-Urine > 100 SEEN /hpf (0-5); White Blood Cells 0-5 SEEN /hpf (0-5)
[2022-09-05] MEDS: HYDROmorphone 1 MG/ML Syringe IV (19:30)
[2022-09-05] MEDS: Ketorolac 30 MG/ML Syringe IV (20:43)
[2022-09-05] MEDS: Ceftriaxone 1 GM/50 ML BAG IV (20:46)
[2022-09-05 20:48] VITALS: BP 190/110; PULSE 82; RESP 15; O2SAT 99
[2022-09-05 21:27] VITALS: BP 180/110; PULSE 82; RESP 15; O2SAT 98
== END 2022-09-05 21:29 | disposition home or self-care (01) ==
PROVIDERS: Physician Assistant; Emergency Provider Emergency Medicine; Visit Provider Emergency Medicine
DX: R10.9 Unspecified abdominal pain (principal); G89.18 Other acute postprocedural pain; N20.1 Calculus of ureter; Z87.442 Personal history of urinary calculi
CPT/HCPCS: 74019; 80048; 81001; 85025; 87086; 96361; 96365; 96375; 96376; 99284; J7030; A4216; J2405

== ENCOUNTER → 2025-01-01 | Outpatient (CLI) | payer MEDICAID, SELFPAY ==
[2025-01-01 16:16] LABS: Absolute Lymphocyte Count 2.58 X10^3/uL (0.83-4.51); Absolute Neutrophil Count 9.7 X10^3/uL (2.0-7.7); Basophil# 0.03 X10^3/uL; Basophil% 0.2 % (0-1); Eosinophil# 0.09 X10^3/uL; Eosinophils% 0.7 % (0-5); Hematocrit 46.4 % (40-54); Hemoglobin 15.2 g/dL (13.0-16.5); Lymphocyte # 2.58 X10^3/ul (0.83-4.51); Lymphocyte % 19.5 % (19-41); Mean Corp Hgb Conc 32.8 g/dL (32-36); Mean Corpuscular Hgb 29.6 pg (27.0-32.0); Mean Corpuscular Volume 90.4 fL (80-94); Mean Platelet Vol. 10.2 fl (6.2-12.0); Monocyte# 0.83 X10^3/uL; Monocyte% 6.3 % (0-10); NRBC Flagged by Analyzer 0 % (0-5); Neutrophil # 9.65 X10^3/uL (2.7-7.7); Neutrophil % 72.9 % (47-70); Platelet Count 302 K/mm3 (150-450); RBC Distribution Width SD 39.8 fl (35.1-43.9); Red Blood Count 5.13 M/mm3 (4.6-6.2); White Blood Count 13.2 K/mm3 (4.4-11.0)
[2025-01-01 16:47] LABS: ALB/GLOB Ratio 1.5 RATIO (0.9-2.4); AST(SGOT) 25 U/L (<=37); Alanine Aminotransfer ALT/SGPT 26 U/L (<=46); Albumin, Serum 4.3 g/dL (3.5-5.0); Alkaline Phosphatase 104 U/L (40-129); Anion Gap 11 (5-15); BUN 17 mg/dL (4-19); BUN/Creat Ratio 13.6 RATIO (10-20); Chloride 106 mmol/L (98-108); Cholesterol 212 mg/dL (<=200); Creatinine, Serum 1.26 mg/dL (0.70-1.20); EST Glomerular Filtration Rate 78 (>60); Globulin 2.9 g/dL (2.2-4.2); Glucose 83 mg/dL (70-99); High Density Lipoprotein 37 mg/dL; Low Density Lipoprotein Calc. 125 mg/dL; Potassium 4.7 mmol/L (3.3-5.1); Protein, Total 7.2 g/dL (5.9-8.4); Sodium Level 140 mmol/L (133-145); Total Bilirubin 0.45 mg/dL (0.00-1.30); Triglycerides 248 mg/dL; Very Low Density Lipoprotein 50 mg/dL (5-40); cholesterol:hdl ratio screen 5.67
[2025-01-01 16:53] LABS: Hemoglobin A1c 5.4 % (<=5.6)
== END | disposition home or self-care (01) ==
LOC: BIMLAB 14:04
PROVIDERS: PCP Internal Medicine; Visit Provider Internal Medicine
DX: I10 Essential (primary) hypertension (principal); E66.01 Morbid (severe) obesity due to excess calories
CPT/HCPCS: 36415; 80053; 80061; 83036; 85025

== ENCOUNTER → 2025-01-08 | Outpatient (CLI) | payer MEDICAID, SELFPAY | END | disposition home or self-care (01) | LOC: SL 19:54 | PROVIDERS: PCP Internal Medicine; Referring Provider Internal Medicine; Visit Provider Internal Medicine | DX: G47.10 Hypersomnia, unspecified (principal) | CPT/HCPCS: 95811 ==

== ENCOUNTER → 2025-01-23 | Outpatient (CLI) | payer MEDICAID, SELFPAY | END | disposition home or self-care (01) | LOC: SL 17:23 | PROVIDERS: PCP Internal Medicine; Referring Provider Internal Medicine; Visit Provider Internal Medicine | DX: Z00.00 Encounter for general adult medical examination without abnormal findings (principal) ==